=== PATIENT | female | born 1995 | race Caucasian/White ===

== ENCOUNTER 2021-05-13 15:22 | Inpatient (IN) | payer MEDICAID ==
[~2021-05-13] VITALS: Ht 180.3 cm; Wt 72.1 kg
[2021-05-13] VITALS (8 sets, daily range): BP systolic 131–151; BP diastolic 70–106
[2021-05-13 16:21] LABS: BASOPHILS 0.8 % (0-2); EOSINOPHILS 3.8 % (0-7); HEMATOCRIT 37.1 % (36.0-48.0); HEMOGLOBIN 12.6 g/dL (12-16); LYMPHOCYTES 13.1 % (15-50); MCH 39.8 pg (26.0-34.0); MCHC 33.9 g/dL (31.0-37.0); MCV 117.5 fL (80.0-100.0); MEAN PLATELET VOLUME 7.5 fL (7.4-10.4); MONOCYTES 6.9 % (2-11); NEUTROPHILS 75.4 % (40-80); PLATELET COUNT 408 10x3/uL (130-400); RBC 3.16 10x6/uL (4.00-5.40); RDW 15.3 % (11.5-14.5); WBC 7.9 10x3/uL (4.8-10.8)
[2021-05-13 16:31] LABS: CALC OSMOLALITY 279 mosm/kg (275-300); CALCIUM 8.7 mg/dL (8.5-10.1); CARBON DIOXIDE 26.4 mmol/L (21.0-32.0); CHLORIDE - SERUM 104 mmol/L (98-107); CREATININE - SERUM 0.5 mg/dL (0.6-1.3); GLUCOSE 105 mg/dL (74-106); SODIUM 142 mmol/L (136-145); UREA NITROGEN 5 mg/dL (7-18); eGFR NON AFRICAN AMERICAN > 90 mL/min (90-120)
[2021-05-13 16:37] LABS: ALBUMIN 2.5 g/dL (3.4-5.0); ALKALINE PHOSPHATASE 230 U/L (30-120); ALT (SGPT) 218 U/L (10-68); AMYLASE - SERUM 23 U/L (25-115); BILIRUBIN - TOTAL 0.52 mg/dL (0.2-1.3); LIPASE 201 U/L (73-393); PROTEIN - SERUM 6.6 g/dL (6.4-8.2); TROPONIN-I < 0.017 ng/mL (0.000-0.060)
--- NOTE | 2021-05-13 19:00 | NUR ---
PT IV NORMAL SALINE BOLUS FINISHED
--- NOTE | 2021-05-13 20:19 | NUR ---
PT UP TO BEDSIDE COMMODE WITH FAMILY ASSIST.
[2021-05-13 21:56] LABS: INR 0.98 (0.85-1.17)
--- NOTE | 2021-05-13 21:57 | NUR ---
PT REQUESTING SOMETHING FOR PAIN IN HANDS AND FEET. SEE EMAR.
[2021-05-13 22:10] LABS: CKMB 0.5 U/L (0.0-3.6); CREATINE KINASE 40 UL (21-215)
--- NOTE | 2021-05-13 23:34 | NUR ---
PT RESTING EYES CLOSED, RR EVEN AND UNLABORED, PT AWAKES TO VERBAL STIMULI. DENIES NEEDS. CALL LIGHT IN REACH.
[2021-05-14] VITALS (10 sets, daily range): BP systolic 101–153; BP diastolic 81–99; Ht 180.3 cm; Wt 72.1 kg
--- NOTE | 2021-05-14 00:27 | NUR ---
PT IV BANANA BAG FINISHED AT THIS TIME.
--- NOTE | 2021-05-14 02:13 | NUR ---
PT LOSS PREVENTION OPERATIONS MANAGER LIGHT REQUESTING PAIN MEDICATION. SEE EMAR
[2021-05-14 02:36] LABS: BACTERIA FEW HPF (<MOD); BILIRUBIN NEGATIVE (NEGATIVE); KETONE NEGATIVE mg/dL (< 1+); NITRITE NEGATIVE (NEGATIVE); PH 6.5 (5.0-8.0); SQUAMOUS EPITHELIAL 2 HPF (0-4); UROBILINOGEN 2 mg/dL (< 2); WHITE CELLS - URINE 63 HPF (0-4)
[2021-05-14 02:39] LABS: UDS - AMPHET NEGATIVE QUAL (NEGATIVE); UDS - BARB NEGATIVE QUAL (NEGATIVE); UDS - BENZO NEGATIVE QUAL (NEGATIVE); UDS - COCAINE NEGATIVE QUAL (NEGATIVE); UDS - OPIATE POSITIVE QUAL (NEGATIVE); UDS - PCP NEGATIVE QUAL (NEGATIVE); UDS - THC POSITIVE QUAL (NEGATIVE)
--- NOTE | 2021-05-14 03:54 | NUR ---
PT KEEPS TAKING BP CUFF OFF, PT EDUCATED ON NEED FOR BP CUFF TO STAY ON SO WE CAN MONITOR HER VITALS. PT VERBALIZES UNDERSTANDING.
[2021-05-14 06:37] LABS: BASOPHILS 0.6 % (0-2); EOSINOPHILS 3.2 % (0-7); HEMATOCRIT 36.3 % (36.0-48.0); HEMOGLOBIN 12.3 g/dL (12-16); LYMPHOCYTES 9.4 % (15-50); MCH 39.6 pg (26.0-34.0); MCHC 33.9 g/dL (31.0-37.0); MCV 116.8 fL (80.0-100.0); MEAN PLATELET VOLUME 7.7 fL (7.4-10.4); MONOCYTES 5.3 % (2-11); NEUTROPHILS 81.5 % (40-80); PLATELET COUNT 377 10x3/uL (130-400); RBC 3.11 10x6/uL (4.00-5.40); RDW 15.4 % (11.5-14.5); WBC 9.2 10x3/uL (4.8-10.8)
[2021-05-14 06:55] LABS: APTT 26.8 SECONDS (22.8-39.4); INR 1.04 (0.85-1.17); PROTIME 12.6 SECONDS (11.6-15.0)
--- NOTE | 2021-05-14 07:10 | NUR ---
REPORT RECEIVED, PATIENT RESTING QUIETLY IN THE BED WITH FAMILY. RESPIRATIONS EVEN AND UNLABORED. CALL ARANA IN REACH, SIDE RAILS UP X 2, BED IN LOW POSITION.
[2021-05-14 07:16] LABS: ALBUMIN 2.4 g/dL (3.4-5.0); ALKALINE PHOSPHATASE 218 U/L (30-120); ALT (SGPT) 192 U/L (10-68); BILIRUBIN - DIRECT 0.59 mg/dL (0.00-0.30); BILIRUBIN - INDIRECT 0.18 mg/dL (0.00-1.00); BILIRUBIN - TOTAL 0.77 mg/dL (0.2-1.3); CALC OSMOLALITY 271 mosm/kg (275-300); CALCIUM 7.9 mg/dL (8.5-10.1); CARBON DIOXIDE 27.4 mmol/L (21.0-32.0); CHLORIDE - SERUM 102 mmol/L (98-107); CKMB 0.6 U/L (0.0-3.6); CREATINE KINASE 44 UL (21-215); CREATININE - SERUM 0.6 mg/dL (0.6-1.3); GLUCOSE 93 mg/dL (74-106); MAGNESIUM - SERUM 2.4 mg/dL (1.8-2.4); POTASSIUM - SERUM 4.6 mmol/L (3.5-5.1); PROTEIN - SERUM 6.4 g/dL (6.4-8.2); SODIUM 137 mmol/L (136-145); THYROID STIMULATING HORMONE 8.97 uIU/mL (0.36-3.74); UREA NITROGEN 6 mg/dL (7-18); eGFR NON AFRICAN AMERICAN > 90 mL/min (90-120)
[2021-05-14 07:17] LABS: TROPONIN-I < 0.017 ng/mL (0.000-0.060)
--- NOTE | 2021-05-14 11:31 | NUR ---
PATIENT UP TO BEDSIDE POTTY WITH ASSISTANCE FROM FAMILY AND BACK TO BED. SIDE RAILS UP X 2, BED IN LOW POSITION. CALL ARANA IN REACH. PATIENT RESTING QUIETLY WITH RESPIRATIONS EVEN AND UNLABORED. PATIENT REFUSES TO KEEP MONITOR, BP OR PULSE OX ON THROUGHOUT SHIFT SO FAR. NO DISTRESS NOTED.
--- NOTE | 2021-05-14 14:58 | NUR ---
PATIENT SITTING UP IN BED, AWAKE AND ALERT TALKING WITH HER MOTHER AT BEDSIDE. NO DISTRESS NOTED. PATIENT REQUESTS MEDICATION FOR SHAKING. PRN ATIVAN GIVEN. CALL ARANA IN REACH, SIDE RAILS UP X 2, BED IN LOW POSITION. DENIES ANY NEEDS AT THIS TIME.
--- NOTE | 2021-05-14 16:45 | NUR ---
PATIENT RESTING QUIETLY AT THIS TIME, RESPIRATIONS EVEN AND UNLABORED. MOTHER AT BEDSIDE. CALL ARANA IN REACH. SIDE RAILS UP X 2, BED IN LOW POSITION.
--- NOTE | 2021-05-14 18:08 | NUR ---
PATIENT RESTING QUIETLY AT THIS TIME, PATIENT COMPLAINS OF PAIN TO HER FEET AND HANDS. PRN PAIN MED GIVEN . RESPIRATIONS EVEN AND UNLABORED. PATIENT STILL NOT KEEPING MONITOR WIRES, BP CUFF AND 02 SAT PROBE ON, BUT ALLOWING NURSE TO CHECK VITAL SIGNS PERIODICALLY. CALL ARANA IN REACH, SIDE RAILS UP X 2, BED IN LOW POSITION.
--- NOTE | 2021-05-14 21:19 | NUR ---
PT BP CUFF AND PULSE OX OFF AGAIN. PT EDUCATED AGAIN ON IMPORTANCE OF KEEPING THEM ON. PT STATES "I CAN'T KEEP THOSE THINGS ON."
--- NOTE | 2021-05-14 23:30 | NUR ---
PT AIR LIAISON AND SPECIAL STAFF LIGHT REQUESTING PAIN MEDICATION. SEE EMAR.
[2021-05-15 02:37] VITALS: BP 150/101
--- NOTE | 2021-05-15 02:45 | NUR ---
PT CANCELING MACHINE OPERATOR LIGHT C/O SHAKING. PT GIVEN ATIVAN FOR WITHDRAWAL. DENIES FURTHER NEEDS. CALL LIGHT IN REACH.
[2021-05-15 03:56] LABS: BASOPHILS 0.7 % (0-2); EOSINOPHILS 3.6 % (0-7); HEMATOCRIT 38.1 % (36.0-48.0); LYMPHOCYTES 8.8 % (15-50); MCH 39.7 pg (26.0-34.0); MCHC 34.2 g/dL (31.0-37.0); MCV 116.2 fL (80.0-100.0); MEAN PLATELET VOLUME 7.6 fL (7.4-10.4); NEUTROPHILS 79.9 % (40-80); PLATELET COUNT 386 10x3/uL (130-400); RBC 3.28 10x6/uL (4.00-5.40); WBC 8.5 10x3/uL (4.8-10.8)
[2021-05-15 04:09] LABS: ALBUMIN 2.6 g/dL (3.4-5.0); ALKALINE PHOSPHATASE 236 U/L (30-120); ALT (SGPT) 164 U/L (10-68); BILIRUBIN - TOTAL 1.08 mg/dL (0.2-1.3); CALC OSMOLALITY 266 mosm/kg (275-300); CALCIUM 8.6 mg/dL (8.5-10.1); CARBON DIOXIDE 27.3 mmol/L (21.0-32.0); CHLORIDE - SERUM 98 mmol/L (98-107); CREATININE - SERUM 0.7 mg/dL (0.6-1.3); GLUCOSE 91 mg/dL (74-106); POTASSIUM - SERUM 4.7 mmol/L (3.5-5.1); PROTEIN - SERUM 6.8 g/dL (6.4-8.2); SODIUM 135 mmol/L (136-145); UREA NITROGEN 5 mg/dL (7-18); eGFR NON AFRICAN AMERICAN > 90 mL/min (90-120)
--- NOTE | 2021-05-15 04:48 | NUR ---
PT PREFLIGHT MECHANIC LIGHT REQUESTING PAIN MEDICATION. SEE EMAR.
[2021-05-15 04:51] VITALS: BP 147/93
--- NOTE | 2021-05-15 07:05 | NUR ---
PT CARE ASSUMED AT THIS TIME. PT RESTING ON ER STRETCHER, AWAKENS EASILY TO VOICE, BREAKFAST TRAY PROVIDED, NAD NOTED, DENIES NEEDS, CALL LIGHT IN REACH.
[2021-05-15 11:11] LABS: HEPATITIS C ANTIBODY <0.1 S/CO RAT (0.0-0.9)
--- NOTE | 2021-05-15 14:15 | NUR ---
DISCHARGE INSTRUCTIONS AND RX PREPARED. WHEN ARRIVED TO ROOM TO COMPLETE DISCHARGE, PATIENT IS CRYING, C/O 10/10 PAIN IN BOTH FEET. THIS NURSE DISCUSSED OVER THE COUNTER NON-STEROIDAL PAIN MEDICATION AND TO AVOID ACETAMENOPHEN DUE TO LIVER DISEASE. ATTEMPTED TO ADMINISTER MS 4MG AND FOUND IV CATHETER PULLED OUT. MOTHER IS RELUCTANT TO TAKE PATIENT HOME DUE TO PAIN. WILL PAGE VIVIENNE DANIELS APRN, FOR CLARIFICATION.
--- NOTE | 2021-05-15 14:46 | NUR ---
SPOKE WITH VIVIENNE DANIELS APRN. HE IS AWARE OF PATIENT'S PAIN. UNABLE TO PRESCRIBE NARCOTIC PAIN MED DUE TO ALCOHOLISM. ADVISED OVER THE COUNTER NON-STEROIDAL.
--- NOTE | 2021-05-15 14:55 | NUR ---
D/C INSTRUCTIONS GIVEN. FLYER FOR OUTPATIENT ALCOHOL ABUSE TREATMENT CENTERS GIVEN.
== END 2021-05-15 20:26 | disposition home or self-care (01) | DRG 897 ==
LOC: D.ER 15:22 → D.EDHOLD 17:33
PROVIDERS: Family Medicine; ADMIT Family Medicine; ATTEND Family Medicine
DX: F10.231 Alcohol dependence with withdrawal delirium (principal); K70.10 Alcoholic hepatitis without ascites; R10.11 Right upper quadrant pain; I10 Essential (primary) hypertension; D75.89 Other specified diseases of blood and blood-forming organs; F17.203 Nicotine dependence unspecified, with withdrawal; G40.909 Epilepsy, unspecified, not intractable, without status epilepticus; G89.29 Other chronic pain; M54.9 Dorsalgia, unspecified; F32.9 Major depressive disorder, single episode, unspecified; K76.0 Fatty (change of) liver, not elsewhere classified; F12.90 Cannabis use, unspecified, uncomplicated; F11.90 Opioid use, unspecified, uncomplicated